=== PATIENT | female | born 1985 | race Caucasian/White ===

== ENCOUNTER 2017-11-30 20:00 | Inpatient (IN) | payer OTHER ==
[~2017-11-30] VITALS: Ht 165.1 cm; Wt 68.9 kg
[~2017-11-30 20:00] MED LIST: FERR-89 PO; IBUP-2070 PO; PREN-169
[2017-11-30] MEDS ORDERED: OXYTOCIN 30 UNITS/LACT RINGERS 500 ML IV ONE (21:09)
[2017-11-30] MEDS ORDERED: RINGERS SOLUTION,LACTATED 1,000 ML IV SCH (21:09)
[2017-11-30] MEDS ORDERED: RINGERS SOLUTION,LACTATED 1,000 ML IV ONE (21:09)
[2017-11-30] MEDS ORDERED: LIDOCAINE HCL/PF 1% 30 ML VIAL INJ PRN (21:15)
[2017-11-30] MEDS ORDERED: CITRIC ACID/SODIUM CITRATE 30 ML SOLUTION UDCUP PO PRN (21:15)
[2017-11-30] MEDS ORDERED: METOCLOPRAMIDE HCL 5 MG/ML 2 ML VIAL IVP PRN (21:15)
[2017-11-30 21:40] LABS: BASOPHILS % (AUTO) 0.9 % (0.0-2.0); EOSINOPHILS % (AUTO) 0.2 % (1.0-6.0); HEMOGLOBIN 10.7 g/dL (12.0-16.0); LYMPHOCYTES # (AUTO) 2.8 K/uL (1.0-4.8); LYMPHOCYTES % (AUTO) 20.8 % (22.0-44.0); MEAN CORPUSCULAR HEMOGLOBIN 27.4 pg (26.0-34.0); MEAN CORPUSCULAR HGB CONC 33.5 G/dL (31.0-37.0); MEAN CORPUSCULAR VOLUME 82 fL (80-100); MONOCYTES # (AUTO) 0.8 K/uL (0.1-1.0); MONOCYTES % (AUTO) 6.1 % (2.0-9.0); NEUTROPHILS # (AUTO) 9.7 K/uL (1.8-7.7); PLATELET COUNT (AUTO)-OB 372 K/uL (150-450); RED CELL DISTRIBUTION WIDTH 14.7 % (11.5-14.5)
[2017-11-30] MEDS ORDERED: OXYTOCIN 30 UNITS/LACT RINGERS 500 ML IV PRN (22:26)
[2017-11-30 22:54] VITALS: BP 133/70
[2017-12-01] MEDS ORDERED: OXYTOCIN 30 UNITS/LACT RINGERS 500 ML IV ONE (00:08)
[2017-12-01] MEDS ORDERED: LIDOCAINE HCL/PF 1% 30 ML VIAL INJ PRN (00:15)
[2017-12-01] MEDS ORDERED: GLYCERIN/WITCH HAZEL LEAF 40 PADS JAR TP PRN (00:15)
[2017-12-01] MEDS ORDERED: BENZOCAINE 20%/MENTHOL 56 GM SPRAY CANISTER TP PRN (00:15)
[2017-12-01] MEDS ORDERED: LANOLIN 7 GM OINTMENT TP PRN (00:15)
[2017-12-01] MEDS ORDERED: OxyCODONE HCL/ACETAMINOPHEN 5-325 MG TABLET PO PRN ×2 (00:15)
[2017-12-01] MEDS: IBUPROFEN 800 MG TABLET PO PRN ×4 (00:29→23:38)
[2017-12-01] MEDS: MAGNESIUM HYDROXIDE SUSPENSION 30 ML UDCUP PO PRN ×2 (09:54→21:34)
[2017-12-02] MEDS: IBUPROFEN 800 MG TABLET PO PRN ×2 (05:45→12:21)
[2017-12-02 06:21] LABS: BASOPHILS % (AUTO) 0.7 % (0.0-2.0); EOSINOPHILS % (AUTO) 0.7 % (1.0-6.0); HEMATOCRIT 26.4 % (36-46); HEMOGLOBIN 9.4 g/dL (12.0-16.0); LYMPHOCYTES # (AUTO) 3.2 K/uL (1.0-4.8); LYMPHOCYTES % (AUTO) 29.4 % (22.0-44.0); MEAN CORPUSCULAR HEMOGLOBIN 30.5 pg (26.0-34.0); MEAN CORPUSCULAR HGB CONC 35.7 G/dL (31.0-37.0); MEAN CORPUSCULAR VOLUME 85 fL (80-100); MONOCYTES # (AUTO) 0.8 K/uL (0.1-1.0); MONOCYTES % (AUTO) 7.3 % (2.0-9.0); NEUTROPHILS # (AUTO) 6.8 K/uL (1.8-7.7); NEUTROPHILS % (AUTO) 61.9 % (40.0-70.0); PLATELET COUNT (AUTO)-OB 306 K/uL (150-450); RED BLOOD CELL COUNT(AUTO) 3.09 MIL/uL (4.00-5.20); RED CELL DISTRIBUTION WIDTH 14.7 % (11.5-14.5)
[2017-12-02] MEDS ORDERED: IBUP-2071 PO (08:42)
[2017-12-02] MEDS ORDERED: DSS100 PO (08:43)
== END 2017-12-02 14:00 | disposition home or self-care (01) | DRG 775 ==
LOC: 4S 20:00 → OBSVTOIN 20:00
PROVIDERS: ADMIT Obstetrics & Gynecology; ATTEND Obstetrics & Gynecology
PROC: 10E0XZZ Delivery of Products of Conception, External Approach (ICD-10-PCS; principal; 2017-11-30)
PROC: 0HQ9XZZ Repair Perineum Skin, External Approach (ICD-10-PCS; 2017-11-30)
DX: O70.0 First degree perineal laceration during delivery (principal); Z3A.39 39 weeks gestation of pregnancy; Z37.0 Single live birth
CPT/HCPCS: 86850; 86900; 86901; J2590; J3490; J7120